=== PATIENT | female | born 1970 | race Caucasian/White ===

== ENCOUNTER 2016-12-12 17:42 | Inpatient (IN) | payer OTHER ==
[~2016-12-12] VITALS: Ht 160 cm; Wt 132.4 kg
[~2016-12-12 17:42] MED LIST: AMOXICILLIN875 M1 PO; AUGMENTIN 875-1 EACH PO; CELEBREX100 MG PO; CLARITIN10 MG PO; CLEOCIN HCL300 M1 PO; FUROSEMIDE40 MG PO; KLOR-CON 1010 ME1 PO; PREDNISONE 20MG20 MG PO; PROAIR HFA0.09 MG/Ac; SYMBICORT 80-10.2 GM INH; TRAMADOL HCL50 M1 PO; ULTRAM50 M1 PO; ZITHROMAX Z-PA250 M1 PO
--- NOTE | 2016-12-12 17:47 | NUR ---
PER PT SINUSITIS SINCE Sunday CONCENTRATED TO RT EYE, WENT TO WALK IN ON AUGMENTIN AND POLY TRIM ON 12/06 TODAY FEVER AND ITS PAINFUL TO MOVE RT EYE.
--- NOTE | 2016-12-12 18:06 | NUR ---
APPRECIATE TRIAGE NOTE. PT AMBULATORY TO ROOM 18. INFORMED WAITING PERFORMED, OFFERS NO COMPLAINTS AT THIS TIME.
[2016-12-12] MEDS ORDERED: PROAIR HFA8.5 GM INH (18:07)
[2016-12-12] MEDS ORDERED: FUROSEMIDE40 M1 PO (18:07)
[2016-12-12] MEDS ORDERED: POLYMYXIN B-TMP10 ML OD (18:08)
[2016-12-12] MEDS ORDERED: AMOX-CLAV 875-1 EACH PO (18:08)
[2016-12-12] MEDS ORDERED: IBUPROFEN200 M3 PO (18:09)
[2016-12-12] MEDS ORDERED: SYMBICORT 80-10.2 GM (18:12)
[2016-12-12] MEDS ORDERED: SUDAFED PE PRE1 EACH PO (18:14)
--- NOTE | 2016-12-12 18:41 | ED EYE COMPLAINT ---
History of Present Illness General Chief Complaint: Eye Problems Stated Complaint: WAS AT URGENT CARE FOR HER RT EYE Source: patient Exam Limitations: no limitations Allergies Coded Allergies: Sulfa (Sulfonamide Antibiotics) (Severe, FAMILY REACTION PER PT 01/13/16) montelukast (BAD DREAMS 12/12/16) Reconcile Medications Acyclovir (Zovirax) 5 % OINT...G. 1 CHRISTIAN TOP Q4 PRN HSV-1 Albuterol Sulfate (Proair Hfa) 90 MCG HFA.AER.AD 2 PUF INH Q4-6 PRN PRN ASTHMA (Reported) Amoxicillin/Potassium Clav (Augmentin 875-125 Tablet) 875 MG-125 MG TABLET 1 TAB PO BID preseptal cellulitis Furosemide 40 MG TABLET 1 TAB PO DAILY DIURETIC (Reported) Ibuprofen 200 MG CAPSULE 4 CAP PO PRN PAIN/FEVER (Reported) Phenylephrine HCl/Acetaminophn (Sudafed PE Pressure+Pain Cplt) 5 MG-325 MG TABLET 2 TAB PO PRN SINUSES (Reported) Polymyxin B Sulf/Trimethoprim (Polymyxin B-Tmp Eye Drops) 10,000 UNIT-1 MG/ML DROPS 1 GTT OD 4 TIMES/DAY RIGHT EYE (Reported) Potassium Chloride (Klor-Con 10) 10 MEQ TABLET.ER 1 TAB PO DAILY SUPPLEMENT ( Reported) Triage Note: PER PT SINUSITIS SINCE Sunday CONCENTRATED TO RT EYE, WENT TO WALK IN ON AUGMENTIN AND POLY TRIM ON 12/06 TODAY FEVER AND ITS PAINFUL TO MOVE RT EYE. Triage Nurses Notes Reviewed? yes HPI: This patient is a 46-year-old female with a past medical history including seasonal allergies who presented to the emergency department today for evaluation of right eye redness and swelling. The patient reported that last Sunday she started having a sinus headache and low-grade fevers. She reported that she was at that time having chills. She went to an urgent care center with a crit her on polymyxin drops and Augmentin. She was told that she likely had periorbital cellulitis. The patient has continued to have low-grade fevers and chills since that time. She has been taking the medication as directed. The patient noticed today that she has some pain when she looks up with her right eyes. She reported that a couple days ago her eye was red and swollen shot. She denied any sensation of foreign body in her eye. She denied any blurry vision, chest pain, difficulty breathing, abdominal pain, nausea, or vomiting. (ANUM JO PA-C) Vital Signs & Intake/Output Vital Signs & Intake/Output Vital Signs Date Time Temp Pulse Resp B/P B/P Pulse O2 O2 Flow FiO2 Mean Ox Delivery Rate 12/13 1427 98.2 93 20 130/74 98 12/13 0635 98.3 68 20 134/60 94 Room Air 12/13 0052 Room Air 12/13 0045 97.8 77 20 140/60 95 Room Air 12/13 0024 97.0 72 20 164/70 93 Room Air 12/12 2009 97.5 78 18 171/85 98 12/12 1748 98.8 88 20 96 Room Air ED Intake and Output 12/13 0000 12/12 1200 Intake Total 1000 Output Total Balance 1000 Intake, IV 1000 Past History Travel History Traveled to [place] past 21 day No Medical History Any Pertinent Medical History? see below for history Neurological: NONE EENT: NONE Cardiovascular: WATER RETENTION Respiratory: asthma Gastrointestinal: NONE Hepatic: NONE Renal: NONE Musculoskeletal: NONE Psychiatric: NONE Endocrine: NONE Blood Disorders: HYPOKALEMIA Surgical History Surgical History: non-contributory Psychosocial History What is your primary language Setswana Tobacco Use: Current Daily Use Daily Tobacco Use Amount/Type: => 5 Cigarettes daily Family History Hx Contributory? No (ANUM JO PA-C) Review of Systems Review of Systems Constitutional: Reports: see HPI. Eyes: Reports: see HPI. Ear: Reports: no symptoms. Nose: Reports: no symptoms. Mouth: Reports: no symptoms. Throat: Reports: no symptoms. Respiratory: Reports: no symptoms. Cardiovascular: Reports: no symptoms. GI: Reports: no symptoms. Genitourinary: Reports: no symptoms. Musculoskeletal: Reports: no symptoms. Skin: Reports: see HPI. Neurological/Psychological: Reports: see HPI. All Other Systems: Reviewed and Negative (ANUM JO PA-C) Physical Exam General Appearance: well developed/nourished, no apparent distress, alert, awake General Inspection: normal inspection General Inspection: PROPTOSIS, PERIORBITAL ERYTHEMA AND EDEMA, NO CONJUNCTIVAL INJECTION, NO PURULENT DRAINAGE FROM THE EYE, eomi BILATERALLY WITH MILD PAIN WITH UPWARD GAZE ON THE RIGHT, perrla, NO EVIDENCE OF FOREIGN BODY IN THE EYE AND WITH LID LIFT Physical Exam Comments: Well-developed well-nourished person in no acute distress HEENT: Head normocephalic/atraumatic, moist mucous membranes Tenderness to palpation over the sinuses bilaterally Neck: Supple, no lymphadenopathy Back: Normal gait Cardiovascular: Regular rate and rhythm with no murmurs Respiratory: No respiratory distress. Speaking in full sentences Extremity: Normal equal pulses Neuro: Alert oriented x3, cranial nerves II through XII grossly intact. Skin: No appreciable rash on exposed skin, skin is warm and dry. Psych: Mood and affect is normal (DEYSI BARRETO,ANUM) Progress Differential Diagnosis: corneal abrasion, corneal foreign body, conjunctivitis, detached retina, glaucoma, globe rupture, retinal art./v. occlusion, PERIORBITAL CELLULITIS, ORBITAL CELLULITIS Diagnostic Imaging: Viewed by Me: CT Scan. Discussed w/RAD: CT Scan. Radiology Impression: PATIENT: ROSEMARY STOUT PRESENT AGE: 46 PATIENT ACCOUNT NO: [id number] : 68 LOCATION: [facility] ORDERING PHYSICIAN: ANUM JO PA-C SERVICE DATE: 12/12/16 EXAM TYPE: CAT - CT ORBITS W IV CONTRAST EXAMINATION: CT ORBIT WITH CONTRAST CLINICAL INFORMATION : Proptosis. Erythema. Edema right orbit COMPARISON: None TECHNIQUE: Axial images obtained through the orbits with IV contrast. Coronal and sagittal reformatted images performed at the CT scanner. 95 mL Optiray 320 given. DLP: 194.95 mGy-cm FINDINGS: There is soft tissue swelling the preseptal soft tissue around the right orbit. The orbital globes and retrobulbar structures are normal. There is no acute osseous of noted. No fracture of orbits. There is sinus disease. Mucosal thickening of the wall the right mastoid sinus with air- fluid level in the right maxillary sinus. The ostiomeatal right maxillary sinus is occluded. Mucosal thickening extends into the right ethmoid sinus and extends into the base of the right frontal sinus. There is also mucosal thickening at the inferior left frontal sinus with partial occlusion of the ostia the left frontal sinus The mastoid air cells and middle ear cavities are normally aerated. IMPRESSION: 1. Preseptal soft tissue tissue swelling over the right orbit. 2. No orbital fracture. 3. Sinus disease. DICTATED BY: MELY SORTO MD DATE/TIME DICTATED:12/12/162010 DOUBLE END PRODUCTION GRINDER:JOSEPH DATE/TIME TRANSCRIBED:12/12/162010 CONFIDENTIAL, DO NOT COPY WITHOUT APPROPRIATE AUTHORIZATION. <Electronically signed in Other Vendor System> SIGNED BY: MELY SORTO MD 12/12/162018 Comments: 12/12/2016 9:34:55 PM: Hospitalist would like me to speak with on-call radial arm saw operator. I spoke to the on-call radial arm saw operator, Dr. Bean, who reported that there is not much from January this case. She should get IV antibiotics and if anything should change, he should be contacted. (DEYSI ABRRETO,ANUM) Plan of Care: Orders Procedure Date/time Status Regular Diet 12/13 B Active Change service to 12/13 742 Active CBC WITHOUT DIFFERENTIAL 12/13 599 Complete BASIC ELECTROLYTES PLUS BUN&CR 12/13 599 Complete Pathway - chart 12/13 224 Active House Staff 12/13 224 Active Vital Signs 12/13 38 Active Teach/Educate 12/13 38 Active Pain Treatment and Response 12/13 38 Active Nutritional Intake, Monitor 12/13 38 Active Isolation 12/13 38 Active Intake & Output 12/13 38 Active Patient Care Conference 12/13 38 Active Activity/Ambulation 12/13 38 Active Anticipated Discharge 12/13 UNK Active VTE Mechanical Prophylaxis 12/13 UNK Active OXYGEN SETUP (GEN) 12/13 2235 Active Saline Lock 12/13 2235 Active Misc Message 12/13 2235 Active ED Holding Orders 12/13 2235 Active Vital Signs 12/13 2235 Active Activity/Ambulation 12/12 223 Active Code Status 12/12 223 Active Patient Data 12/123 Active Admit to inpatient 12/12 2136 Active BLOOD CULTURE 12/12 182 Active URINE 12/12 182 Complete LACTIC ACID 12/12 182 Complete COMPREHENSIVE METABOLIC PANEL 12/12 182 Complete CBC WITHOUT DIFFERENTIAL 12/12 182 Complete Intake & Output 12/12 1807 Active Current Medications Sig/Bruno Start time Last Medication Dose Stop Time Status Admin Acyclovir 1 CHRISTIAN Q4 12/13 1800 AC (Zovirax Oint) Heparin Sodium 5,000 UNIT Q8 12/13 0600 AC 12/13 (Porcine) 1451 Potassium Chloride 10 MEQ DAILY PRN 12/13 0515 AC (K-Dur) Furosemide 40 MG DAILY PRN 12/13 0500 AC (Lasix) Acetaminophen 650 MG Q6P PRN 12/13 0230 AC 12/13 (Tylenol) 0458 Acetaminophen 1,000 MG Q6P PRN 12/13 0230 AC (Ofirmev) Albuterol Sulfate 2 PUF Q4-6 PRN PRN 12/13 0230 AC (Ventolin) Oxycodone/ 1 TAB Q6P PRN 12/13 0230 AC Acetaminophen (Percocet) Ampicillin Sodium/ 3,000 MG Q6 12/12 2359 AC 12/13 Sulbactam Sodium 1154 (Unasyn) Sodium Chloride 100 ML (Normal Saline 0.9%) Vancomycin HCl 0 .STK-MED ONE 12/12 222 CAN Vancomycin HCl 1,000 MG ONCE ONE 12/12 214 CAN Sodium Chloride 250 ML 12/12 2244 (Normal Saline 0.9%) Laboratory Tests 12/13/16 0632: Anion Gap 8, Estimated GFR > 60, BUN/Creatinine Ratio 18.8, CBC w Diff NO MAN DIFF REQ, RBC 4.07 L, MCV 93.7, MCH 31.3 H, RDW 13.0, MPV 8.1, Gran % 56.7, Lymphocytes % 28.4, Monocytes % 8.0, Eosinophils % 6.3 H, Basophils % 0.6, Absolute Granulocytes 4.4, Absolute Lymphocytes 2.2, Absolute Monocytes 0.6, Absolute Eosinophils 0.5, Absolute Basophils 0, PUBS MCHC 33.4 12/12/162: Lactic Acid Cancelled 12/12/16 1850: Anion Gap 15, Estimated GFR > 60, BUN/Creatinine Ratio 20.0, Glucose 106 H, Lactic Acid 1.1, Calcium 9.2, Total Bilirubin 0.4, AST 31, ALT 69 H, Alkaline Phosphatase 125, Total Protein 7.6, Albumin 4.3, Globulin 3.3, Albumin/Globulin Ratio 1.3, CBC w Diff NO MAN DIFF REQ, RBC 4.59, MCV 93.0, MCH 31.3 H, RDW 12.8 , MPV 7.6, Gran % 65.0, Lymphocytes % 24.1, Monocytes % 3.7, Eosinophils % 6.5 H, Basophils % 0.7, Absolute Granulocytes 5.7, Absolute Lymphocytes 2.1, Absolute Monocytes 0.3, Absolute Eosinophils 0.6, Absolute Basophils 0.1, PUBS MCHC 33.6, Urine Test NEGATIVE Microbiology 12/13 1931 BLOOD: Blood Culture - RES 12/12 1849 BLOOD: Blood Culture - RES Departure Departure Disposition: STILL A PATIENT Condition: Stable Clinical Impression Primary Impression: Periorbital cellulitis of right eye Referrals: TEE GAITAN MD (PCP/Family) Departure Forms: Customer Survey General Discharge Information Prescriptions: Current Visit Scripts Acyclovir (Zovirax) 1 CHRISTIAN TOP Q4 PRN HSV-1 #1 Amoxicillin/Potassium Clav (Augmentin 875-125 Tablet) 1 TAB PO BID 9 Days Admission Note Spoke With: DELLA MATOS MD Documentation of Exam: Documentation of any treatments & extenuating circumstances including Concerns Regarding Discharge (functional status, medication knowledge or non-compliance, living conditions, etc.) that warrant an admission rather than observation: [ This patient is a 46-year-old female who presented to the emergency department today for evaluation of redness and swelling around her right eye. Proptosis noted. CT scan of the orbits revealed periorbital cellulitis. Because of this patient was on a on a course of outpatient antibiotics for this infection, she has felt outpatient therapy and will need admission to Gen. medicine for IV antibiotics. She will need her blood cultures followed up, her labs trended, IV fluids, and close monitoring. Premature discharge could prove medically harmful.] (DEYSI BARRETO,ANUM) PA/LEGAL PROJECT MANAGER Co-Sign Statement Statement: ED Attending supervision documentation- [] I saw and evaluated the patient. I have also reviewed all the pertinent lab results and diagnostic results. I agree with the findings and the plan of care as documented in the PA's/LEGAL PROJECT MANAGER's documentation. [X] I have reviewed the ED Record and agree with the PA's/LEGAL PROJECT MANAGER's documentation. [] Additions or exceptions (if any) to the PAs/LEGAL PROJECT MANAGER's note and plan are summarized below: [] (RADHA SWANN,HEIDI Cueva)
--- NOTE | 2016-12-12 18:58 | NUR ---
BLOOD DRAWN AND SENT TO LAB BY THIS [facility]. 1ST SET OF BLOOD CULTURES, SST, LAV, AND AZEVEDO. URINE TRIO COLLECTED AND SENT TO LAB BY THIS [facility].
[2016-12-12 19:03] LABS: ABSOLUTE BASOPHIL COUNT 0.1 /CUMM (0.0-0.2); ABSOLUTE EOSINOPHIL COUNT 0.6 /CUMM (0.0-0.7); ABSOLUTE GRANULOCYTE CT 5.7 /CUMM (1.4-6.5); ABSOLUTE LYMPH COUNT 2.1 /CUMM (1.2-3.4); ABSOLUTE MONOCYTE COUNT 0.3 /CUMM (0.10-0.60); BASOPHIL % 0.7 % (0.0-2.0); EOSINOPHIL % 6.5 % (0-5); HEMATOCRIT 42.7 % (37-47); MEAN CORPUSCULAR HGB 31.3 PG (27.0-31.0); MEAN CORPUSCULAR HGB CONC 33.6 G/DL (33.0-37.0); MEAN PLATELET VOLUME 7.6 FL (7.4-10.4); PLATELET COUNT 270 /CUMM (130-400); RBC DISTRIBUTION WIDTH 12.8 % (11.5-14.5); RED BLOOD CELL CT 4.59 /CUMM (4.20-5.40); WHITE BLOOD CELL COUNT 8.8 /CUMM (4.8-10.8)
--- NOTE | 2016-12-12 19:47 | NUR ---
LINE EST #20 TO RAC. PT MEDICATED PER EMAR. AMBULATORY TO CAT SCAN AT THIS TIME.
--- NOTE | 2016-12-12 20:19 | CT SCAN REPORT ---
EXAMINATION: CT ORBIT WITH CONTRAST CLINICAL INFORMATION: Proptosis. Erythema. Edema right orbit COMPARISON: None TECHNIQUE: Axial images obtained through the orbits with IV contrast. Coronal and sagittal reformatted images performed at the CT scanner. 95 mL Optiray 320 given. DLP: 194.95 mGy-cm FINDINGS: There is soft tissue swelling the preseptal soft tissue around the right orbit. The orbital globes and retrobulbar structures are normal. There is no acute osseous of noted. No fracture of orbits. There is sinus disease. Mucosal thickening of the wall the right mastoid sinus with air-fluid level in the right maxillary sinus. The ostiomeatal right maxillary sinus is occluded. Mucosal thickening extends into the right ethmoid sinus and extends into the base of the right frontal sinus. There is also mucosal thickening at the inferior left frontal sinus with partial occlusion of the ostia the left frontal sinus The mastoid air cells and middle ear cavities are normally aerated. IMPRESSION: 1. Preseptal soft tissue tissue swelling over the right orbit. 2. No orbital fracture. 3. Sinus disease.
--- NOTE | 2016-12-12 22:01 | History & Physical ---
KIMBRELEY MAHAJAN 12/12/16 2200: General Information and HPI MD Statement: I have seen and personally examined ROSEMARY STOUT and documented this H&P. The patient is a 46 year old F who presented with a patient stated chief complaint of right eye pain associated with redness and swelling for 2 weeks Source of Information: patient Exam Limitations: no limitations History of Present Illness: This is a 46-year-old female with past medical history significant for seasonal allergies, asthma, water retention in legs on lasix as required presented to [facility] emergency department with the chief complaint of right eye pain associated with redness and swelling for a couple of weeks. Patient has history of seasonal allergies for which she takes Claritin. According to the patient since Sunday she was having sinusitis which progressed to low-grade fever, chills associated with sinus headaches. She went to her primary care doctor on 12/06/2016 and she was started on Augmentin and polymyxin eyedrops for presumed preorbital cellulitis. Patient completed 7 days of antibiotic course, she feels swelling and redness has came down since taking antibiotics. However she was worried about her vision and chances of progression of pre-orbital cellulitis to orbital cellulitis.(She was reading in the Internet) Patient reported redness, swelling which has been subsided associated with mild pain. She feels pulling sensation of the right eye muscles. Denies any pain with eye movements. Denies proptosis, foreign body sensation. Denies any changes in her vision. Denies any eye discharge. She denied any trauma to her eye. Denies any scratchy or itchy sensation. She denies any ear infection, ear pain, ear drainage. Denies any sore throat. Patient denies any headache, no weakness, sensory changes, numbness or tingling sensation, chest pain, racing of heart, difficulty breathing, cough, upper respiratory tract infections, nausea, vomiting, abdominal pain, change in bladder or bowel habits, peripheral edema. Patient reports history of smoking almost 2 packs per day, however she has been cutting down. Right now she smokes less than half pack per day. Socially alcoholic. Denies any other drug abuse. She lives with her son and independent of all activities. Allergies/Medications Allergies: Coded Allergies: Sulfa (Sulfonamide Antibiotics) (Severe, FAMILY REACTION PER PT 01/13/16) montelukast (BAD DREAMS 12/12/16) Home Med list Albuterol Sulfate (Proair Hfa) 90 MCG HFA.AER.AD 2 PUF INH Q4-6 PRN PRN ASTHMA (Reported) Furosemide 40 MG TABLET 1 TAB PO DAILY DIURETIC (Reported) Ibuprofen 200 MG CAPSULE 4 CAP PO PRN PAIN/FEVER (Reported) Phenylephrine HCl/Acetaminophn (Sudafed PE Pressure+Pain Cplt) 5 MG-325 MG TABLET 2 TAB PO PRN SINUSES (Reported) Polymyxin B Sulf/Trimethoprim (Polymyxin B-Tmp Eye Drops) 10,000 UNIT-1 MG/ML DROPS 1 GTT OD 4 TIMES/DAY RIGHT EYE (Reported) Potassium Chloride (Klor-Con 10) 10 MEQ TABLET.ER 1 TAB PO DAILY SUPPLEMENT ( Reported) Compliance With Home Meds: GOOD Past History Travel History Traveled to [place] past 21 day No Medical History Neurological: NONE EENT: NONE Cardiovascular: WATER RETENTION Respiratory: asthma Gastrointestinal: NONE Hepatic: NONE Renal: NONE Musculoskeletal: NONE Psychiatric: NONE Endocrine: NONE Blood Disorders: HYPOKALEMIA Surgical History Surgical History: non-contributory Past Family/Social History Psychosocial History Smoking Status: Current Everyday Smoker ETOH Use: occasional use Illicit Drug Use: denies illicit drug use Review of Systems Review of Systems Constitutional: Reports: chills, fever. Denies: diaphoresis, malaise, weakness, unexplained weight loss. EENTM: Reports: eye pain. Denies: blurred vision, double vision, visual changes, eye drainage, eye tearing, ear discharge, ear pain, ear redness, hearing changes, nasal congestion, epistaxis, nasal pain, throat pain, throat swelling, mouth pain, tooth pain. Cardiovascular: Denies: chest pain, edema, orthopena, palpitations, peripheral edema, syncope. Respiratory: Denies: cough, hemoptysis, orthopnea, short of breath, sputum production, stridor, wheezing. GI: Denies: abdominal pain, bloating, constipation, diarrhea, distention, melena, nausea, bloody stool, changes in stool. Genitourinary: Denies: discharge, dysuria, frequency, pain, urgency. Musculoskeletal: Denies: back pain, gout, joint pain. Skin: Denies: see HPI. Neurological/Psychological: Denies: anxiety, ataxia, depressed, dementia, headache, numbness, tingling, tremors, weakness. Exam & Diagnostic Data Last 24 Hrs of Vital Signs/I&O Vital Signs Date Time Temp Pulse Resp B/P B/P Pulse O2 O2 Flow FiO2 Mean Ox Delivery Rate 12/13 0052 Room Air 12/13 0045 97.8 77 20 140/60 95 Room Air 12/13 0024 97.0 72 20 164/70 93 Room Air 12/12 2009 97.5 78 18 171/85 98 12/12 1748 98.8 88 20 96 Room Air Intake & Output 12/13 0800 12/13 0000 12/12 1600 Intake Total 1000 Output Total Balance 1000 Intake, IV 1000 Patient 132.449 kg Weight Physical Exam General Appearance Alert, Oriented X3, Cooperative, No Acute Distress Skin No Rashes, No Breakdown HEENT Atraumatic, PERRLA, EOMI, Mucous Membr. moist/pink Neck Supple, No JVD Lymphatic Axillary nl, Cervical nl Cardiovascular Regular Rate, Normal S1, Normal S2, No Murmurs Lungs Normal Air Movement Abdomen Normal Bowel Sounds, Soft, No Tenderness Neurological Normal Speech, Strength at 5/5 X4 Ext, Normal Tone, Sensation Intact, Cranial Nerves 3-12 NL, Reflexes 2+ Extremities No Clubbing, No Cyanosis, No Edema Vascular Normal Pulses, Pulses Symmetrical Last 24 Hrs of Labs/Stephen: Laboratory Tests 12/12/162121: Lactic Acid Cancelled 12/12/161849: Anion Gap 15, Estimated GFR > 60, BUN/Creatinine Ratio 20.0, Glucose 106 H, Lactic Acid 1.1, Calcium 9.2, Total Bilirubin 0.4, AST 31, ALT 69 H, Alkaline Phosphatase 125, Total Protein 7.6, Albumin 4.3, Globulin 3.3, Albumin/Globulin Ratio 1.3, CBC w Diff NO MAN DIFF REQ, RBC 4.59, MCV 93.0, MCH 31.3 H, RDW 12.8 , MPV 7.6, Gran % 65.0, Lymphocytes % 24.1, Monocytes % 3.7, Eosinophils % 6.5 H, Basophils % 0.7, Absolute Granulocytes 5.7, Absolute Lymphocytes 2.1, Absolute Monocytes 0.3, Absolute Eosinophils 0.6, Absolute Basophils 0.1, PUBS MCHC 33.6, Urine Test NEGATIVE Microbiology 12/13 1931 BLOOD: Blood Culture - RECD 12/12 1849 BLOOD: Blood Culture - RECD Assessment/Plan Assessment: This is a 46-year-old female with past medical history significant for seasonal allergies, asthma, water retention in legs on lasix as required presented to [facility] emergency department with the chief complaint of right eye pain associated with redness and swelling for a couple of weeks. According to the patient since Sunday she was having sinusitis which progressed to low-grade fever, chills associated with sinus headaches. She went to her primary care doctor on 12/06/2016 and she was started on Augmentin and polymyxin eyedrops for presumed preorbital cellulitis. Vitals on admission-afebrile, heart rate 88, respiratory rate 20, blood pressure 171/85, saturating at 96 room air. Pertinent labs on admission CBC and BMP were normal. Lactic acid normal. LFTs normal. She received 1bag of sodium chloride and vancomycin in the emergency room. CAT scan showed 1. Preseptal soft tissue tissue swelling over the right orbit. 2. No orbital fracture. 3. Sinus disease. Problem list 1. preseptal cellulitis of righteye 2. History of seasonal allergies 3. History of asthma 4. leg edema Preseptal cellulitis of right eye Patient completed 7 days of antibiotic course for preseptal cellulitis, she feels swelling and redness has came down since taking antibiotics. However she was worried about her vision and chances of progression of pre-orbital cellulitis to orbital cellulitis.(She was reading in the Internet) * Denies any pain with eye movements. Denies proptosis, foreign body sensation. Denies any changes in her vision. Denies any eye discharge. * She denied any trauma to her eye. * Denies any scratchy or itchy sensation. * She denies any ear infection, ear pain, ear drainage. * Denies any sore throat. * most possibly sinusitis proceeding to eye infection. * The most common sources might be staph aureus, Streptococcus, anaerobes * We'll admit her to general med for further management of preseptal cellulitis * Monitor vitals every shift * Start her on IV antibiotics-Unasyn * Follow-up blood cultures * Closely monitor for worsening eye symptoms like loss of vision, ophthalmoplegia, proptosis vision changes, any discharge from eye seasonal allergies Claritin as required Asthma Uses proair leg edema Takes Lasix 40 mg as required She is full code Pain pathway Tylenol and oxycodone Regular diet DVT prophylaxis As Ranked By This Provider Problem List: 1. Periorbital cellulitis of right eye Core Measures/Miscellaneous Acute Coronary Syndrome ACS Diagnosis: No Cerebrovascular Accident CVA/TIA Diagnosis: No Congestive Heart Failure CHF Diagnosis: No Venous Thromboembolism VTE Risk Factors: Age > 40 No [facility] VTE prophylaxis d/t: No contraindications No VTE Pharm Prophylaxis d/t: No contraindications VTE Diagnosis: No VTE Type: NONE VTE Confirmed by (Test): NONE Severe Sepsis Severe Sepsis Present: No Septic Shock Septic Shock Present: No Miscellaneous Documentation Attending Case Discussed With: DELLA MATOS MD Primary Care Physician: TEE GAITAN MD Patient sees these Specialists none Level of Patient Care: General Medicine ROBERTO FISH 12/13/16 0308: Resident Review Statement Other Findings: Ms. Stout, is a 46 year-old female with significant past medical history of asthma [only on pro-air scratch that albuterol as a rescue inhaler], and seasonal allergies who presents to the hospital emergency department with complaints of left periorbital swelling. She states that on Sunday, approximately November 26 she had a significant attack of allergic rhinitis secondary to pollen exposure, and feels she subsequently developed sinusitis after that. This wound for approximately 1 week, during which she developed frontal sinus fullness and pain on the right side along with the development of fevers. This progressed in spite of her taking Sudafed and Claritin, and she developed right eye swelling with erythema. She visited her doctor and was told she had preseptal cellulitis, and was subsequently placed on Augmentin and polymyxin eyedrops. She began improving and her swelling significantly decreased along with her erythema, however she presented to the hospital after reading online that orbital cellulitis can lead to vision loss. Associated symptoms in addition to her right orbital erythema and edema include fever and chills with sinus congestion. She denied any diplopia, pain with extraocular movement or discharge. She denied any vision loss. The remaining review of systems and physical exam as dictated above. Of note, she does have 2 cold sores on her upper lip. Ophthalmoscopic exam of her right eye was benign. Visual acuity intact. There is mild to moderate periorbital swelling and erythema [improved when compared with pictures on the patient's phone], no discharge expressed with palpation. No tenderness to palpation. Labs and CT scan as dictated above. Problem list assessment and plan Preseptal cellulitis [aka periorbital cellulitis] * This is a very nice and typical case of preseptal cellulitis, which was preceded by an upper respiratory infection/sinusitis. There is no associated trauma. * Most common causes of preseptal cellulitis include staph aureus, staph epidermidis and Streptococcus as well as anaerobes. * She did respond to by mouth Augmentin and polymyxin, she started on December 06 and therefore has received 6 days of antibiotics so far. * Given her response to the current regimen, we will treat with IV Unasyn 3 g every 6 hours in the outpatient setting. * Monitor vitals including fever and repeat CBC in the morning. * Tylenol for mild pain and fevers. Asthma/LE swelling * The patient only uses albuterol as a rescue inhaler, and does not use Symbicort anymore. * She has cut back her smoking significantly and was encouraged to continue. * Maintain O2 saturations above 92%. * Pt only uses furosemide PRN for leg swelling. No swelling and we will hold for now. 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 Then she started to develop program low-grade fever, chills. 7 days back she went to urgent care where she was told that she has periorbital cellulitis and was given Augmentin. The redness and swelling was getting better. Patient has comparative pictures on her cell phone. But then she reviewed online that periorbital cellulitis can be confused with our bilateral cellulitis and may lose vision. And she was noticing some pressure in eyelids looking upwards so she came to ER. Vision is intact, no ear discharge, no sore throat or cough. She noticed some glands in her neck. Vitals: Afebrile, pulse, RRR, blood pressure, O2 saturation acceptable range. On examination: A O 3, cooperative, morbidly obese, right eye inflammation, extraocular movements intact , coronary intact, pupils equal round reactive to light, mild congestion conjunctival lateral aspect, no pain while eye-movement, no proptosis, mild tenderness on frontal sinus, no acute distress, neck supple, JVD normal, cervical lymphadenopathy present, herpes sores on lips, mucosa moist , no focal neurological deficit, no dependent edema, no obvious skin rashes or inflammation CVS: S1-S2, RRR. RS: Clear to auscultate bilaterally. Abdomen: Soft , NT, ND, bowel sounds present. Labs: CBC, BMP, LFT unremarkable. CT ORBIT: 1. Preseptal soft tissue tissue swelling over the right orbit. 2. No orbital fracture. 3. Sinus disease. A and P Periorbital cellulitis: Full range of eye movement present, no pain on extraocular movements. Mild redness on lateral aspect of conjunctiva but no proptosis, vision intact. Continue Unasyn IV, pain control. DVT prophylaxis with heparin.
--- NOTE | 2016-12-12 22:12 | NUR ---
HOUSE STAFF TO BEDSIDE FOR EVALUATION.
--- NOTE | 2016-12-12 22:48 | NUR ---
DR. Maier TO BEDSIDE FOR EVAL AT THIS TIME.
--- NOTE | 2016-12-12 23:44 | NUR ---
ASSUMED PRIMARY CARE OF PT. UNASYN INFUSING ORDERED. PT OFFERS NO COMPLAINTS AT THIS TIME DOES NOT WISH TO CHANGE INTO GOWN AWAKE/ALERT WITH EASY WOB.
--- NOTE | 2016-12-13 00:13 | NUR ---
REPORT TO DORON DSOUZA.
[2016-12-13 00:45] VITALS: BP 140/60
--- NOTE | 2016-12-13 03:51 | Admission Certification ---
Admission Certification Certification Statement - As attending physician, I certify that at the time of - admission, based on clinical presentation, severity of - symptoms, need for further diagnostic testing and - therapeutic interventions, and risk of adverse outcomes - without in-hospital treatment, in my clinical assessment, - this patient requires an acute hospital stay for a minimum - of two nights or longer. I have also considered psychsocial - factors such as support system, advanced age, financial - issues, cognitive issues, and failed out-patient treatments, - past re-admission history, safety of patient, and lack of - compliance as applicable. Specific rationale supporting this admission is: Periorbital cellulitis
[2016-12-13 06:35] VITALS: BP 134/60
[2016-12-13 07:52] LABS: ABSOLUTE EOSINOPHIL COUNT 0.5 /CUMM (0.0-0.7); ABSOLUTE GRANULOCYTE CT 4.4 /CUMM (1.4-6.5); ABSOLUTE MONOCYTE COUNT 0.6 /CUMM (0.10-0.60); MEAN PLATELET VOLUME 8.1 FL (7.4-10.4)
[2016-12-13 08:26] LABS: ABSOLUTE BASOPHIL COUNT 0 /CUMM (0.0-0.2); ABSOLUTE LYMPH COUNT 2.2 /CUMM (1.2-3.4); BASOPHIL % 0.6 % (0.0-2.0); EOSINOPHIL % 6.3 % (0-5); GRANULOCYTE % 56.7 % (42.2-75.2); HEMATOCRIT 38.2 % (37-47); MEAN CORPUSCULAR HGB 31.3 PG (27.0-31.0); MEAN CORPUSCULAR HGB CONC 33.4 G/DL (33.0-37.0); MEAN CORPUSCULAR VOLUME 93.7 FL (81.0-99.0); PLATELET COUNT 231 /CUMM (130-400); RED BLOOD CELL CT 4.07 /CUMM (4.20-5.40); WHITE BLOOD CELL COUNT 7.7 /CUMM (4.8-10.8)
--- NOTE | 2016-12-13 11:27 | PN- Housestaff ---
LARRY JARRETT 12/13/16 1126: Subjective Follow-up For: preseptal cellulitis Subjective: Seen and examined patient. States her right eye swelling has improved. Continues to have discomfort on medial abduction of right eye. Denies pain on eye movement , headache, discharge or vision changes. Endorses two lesions above her lip that are painful. Review of Systems Constitutional: Denies: chills, diaphoresis, fever, malaise, weakness, unexplained weight loss. Cardiovascular: Denies: chest pain, edema, orthopena, palpitations, peripheral edema, syncope. Respiratory: Denies: cough, hemoptysis, orthopnea, short of breath, sputum production, stridor, wheezing. Gastrointestinal: Denies: abdominal pain, bloating, constipation, diarrhea, distention, bowel incontinence, melena, nausea, bloody stool, changes in stool, vomiting, steatorrhea. Objective Last 24 Hrs of Vital Signs/I&O Vital Signs Date Time Temp Pulse Resp B/P B/P Pulse O2 O2 Flow FiO2 Mean Ox Delivery Rate 12/13 1427 98.2 93 20 130/74 98 / 0635 98.3 68 20 134/60 94 Room Air 12/13 0052 Room Air 12/13 0045 97.8 77 20 140/60 95 Room Air / 0024 97.0 72 20 164/70 93 Room Air 12/12 2010 97.5 78 18 171/85 98 / 1748 98.8 88 20 96 Room Air Intake & Output 12/13 1600 /03 0800 12/13 0000 Intake Total 400 1000 Output Total Balance 400 1000 Intake, IV 1000 Intake, Oral 400 Patient 292 lb Weight Physical Exam General Appearance: Alert, Oriented X3, Cooperative, No Acute Distress, obese HEENT: PERRLA, EOMI, mild swelling of skin over right eye Cardiovascular: Regular Rate, Normal S1, Normal S2 Lungs: Clear to Auscultation, Normal Air Movement Abdomen: Soft, No Tenderness Extremities: No Edema Current Medications: Current Medications Sig/Bruno Start time Last Medication Dose Route Stop Time Status Admin Acetaminophen 650 MG Q6P PRN 12/13 0230 AC 05/03 PO 0458 Acetaminophen 1,000 MG Q6P PRN 12/13 0230 AC IV Acyclovir 1 CHRISTIAN Q4 12/13 1800 UNVr TOP Albuterol Sulfate 2 PUF Q4-6 PRN PRN 12/13 0230 AC INH Ampicillin Sodium/ 3,000 MG Q6 12/12 2359 AC 12/13 Sulbactam Sodium IV 1154 Sodium Chloride 100 ML Ampicillin Sodium/ 0 .STK-MED ONE 12/12 2335 DC Sulbactam Sodium .ROUTE Furosemide 40 MG DAILY PRN 12/13 0500 AC PO Heparin Sodium 5,000 UNIT Q8 12/13 0600 AC 12/13 (Porcine) SC 0507 Oxycodone/ 1 TAB Q6P PRN 12/13 0230 AC Acetaminophen PO Patient Medication 1 ED .STK-MED ONE 12/13 1412 DC Teaching ED 12/13 1413 Potassium Chloride 10 MEQ DAILY PRN 12/13 0515 AC PO Sodium Chloride 1,000 ML BOLUS ONE 12/12 1830 DC 12/12 IV 12/12 1929 1947 Vancomycin HCl 0 .STK-MED ONE 12/12 2226 CAN .ROUTE Vancomycin HCl 1,000 MG ONCE ONE 12/12 2145 CAN Sodium Chloride 250 ML IV 12/12 2244 Last 24 Hrs of Lab/Stephen Results Last 24 Hrs of Labs/Mics: Laboratory Tests 12/13/16 0632: Anion Gap 8, Estimated GFR > 60, BUN/Creatinine Ratio 18.8, CBC w Diff NO MAN DIFF REQ, RBC 4.07 L, MCV 93.7, MCH 31.3 H, RDW 13.0, MPV 8.1, Gran % 56.7, Lymphocytes % 28.4, Monocytes % 8.0, Eosinophils % 6.3 H, Basophils % 0.6, Absolute Granulocytes 4.4, Absolute Lymphocytes 2.2, Absolute Monocytes 0.6, Absolute Eosinophils 0.5, Absolute Basophils 0, PUBS MCHC 33.4 12/12/162121: Lactic Acid Cancelled 12/12/16 1850: Anion Gap 15, Estimated GFR > 60, BUN/Creatinine Ratio 20.0, Glucose 106 H, Lactic Acid 1.1, Calcium 9.2, Total Bilirubin 0.4, AST 31, ALT 69 H, Alkaline Phosphatase 125, Total Protein 7.6, Albumin 4.3, Globulin 3.3, Albumin/Globulin Ratio 1.3, CBC w Diff NO MAN DIFF REQ, RBC 4.59, MCV 93.0, MCH 31.3 H, RDW 12.8 , MPV 7.6, Gran % 65.0, Lymphocytes % 24.1, Monocytes % 3.7, Eosinophils % 6.5 H, Basophils % 0.7, Absolute Granulocytes 5.7, Absolute Lymphocytes 2.1, Absolute Monocytes 0.3, Absolute Eosinophils 0.6, Absolute Basophils 0.1, PUBS MCHC 33.6, Urine Test NEGATIVE Microbiology 12/13 1931 BLOOD: Blood Culture - RES 12/12 1849 BLOOD: Blood Culture - RES Assessment/Plan Assessment: 46-year-old female with past medical history significant for seasonal allergies, asthma, water retention in legs on lasix as required presented to [facility] emergency department with the chief complaint of right eye pain associated with redness and swelling for a couple of weeks. CT scan of orbits with IV contrast. Current admission for outpatient treatment failure of preseptal cellulitis. hospital day 1 afebrile, VSS stable, Problem list assessment and plan Preseptal cellulitis: continue IV Unasyn 3 g every 6 hours will transition to PO antibiotic tommorrow * Tylenol for mild pain and fevers. 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 Periorbital cellulitis of right eye Pain Ratin Pain Location: na Pain Goal: Pain 4 or less Pain Plan: current regimen Tomorrow's Labs & Rationales: none required BRANDY SWANN,COLEMAN 12/13/16 1319: Attending MD Review Statement Attending Statement Attending MD Statement: examined this patient, discuss w/resident/PA/CITY ADMINISTRATOR, agreed w/resident/PA/CITY ADMINISTRATOR, reviewed EMR data (avail), discussed with nursing, discussed with case mgmt, amended to note Attending Assessment/Plan: Patient is a very pleasant 46-year-old female who presents with a right periorbital cellulitis. It began last week and she was started on Augmentin. She did admit to improvement on oral antibiotic therapy every events by pager she provided however she felt some discomfort when moving her eye and became concerned after reading about the infection on line. This morning she is doing even much better with near resolution of the periorbital erythema and marked improvement of the swelling. She has no discharge and has normal eye movement with no pain. She is afebrile and hemodynamically stable with no leukocytosis on her labs. She shows no other evidence of skin infection other than what appears to be herpes simplex rash on her upper lip. Recommendations: -The pathogens to be concern for streptococcal course, staph aureus particularly MRSA and possibly anaerobes. Her current improvement with the current course of antibiotic therapy especially her outpatient regimen makes the latter organisms less likely. - Continue IV metabolic therapy with Unasyn today. Transition back to Augmentin at the time of discharge to complete 10 days of therapy starting from yesterday.
[2016-12-13 14:27] VITALS: BP 130/74
[2016-12-13] MEDS ORDERED: ZOVIRAX30 GM TOP (15:27)
[2016-12-13] MEDS ORDERED: AUGMENTIN 875-1 EACH PO (15:27)
--- NOTE | 2016-12-13 15:30 | Patient Discharge Instructions ---
Discharge Instructions General Discharge Information You were seen/treated for: preseptal cellulitis Watch for these problems: worsening eye swelling pain with eye movement vision changes Special Instructions: please follow up with your primary care physician by 12/19/16. Diet Continue normal diet: Yes Acute Coronary Syndrome Inclusion Criteria At DC or during hospital stay patient has or had the following: ACS DIAGNOSIS No Discharge Core Measures Meds if any: Prescribed or Continued at Discharge Meds if any: NOT Prescribed or Continued at Discharge Congestive Heart Failure Inclusion Criteria At DC or during hospital stay patient has or had the following: CHF DIAGNOSIS No Discharge Core Measures Meds if any: Prescribed or Continued at Discharge Meds if any: NOT Prescribed or Continued at Discharge Cerebrovascular accident Inclusion Criteria At DC or during hospital stay patient has or had the following: CVA/TIA Diagnosis No Discharge Core Measures Meds if any: Prescribed or Continued at Discharge Meds if any: NOT Prescribed or Continued at Discharge Venous thromboembolism Inclusion Criteria VTE Diagnosis No VTE Type NONE VTE Confirmed by (Test) NONE Discharge Core Measures - Per Current guidelines, there needs to be overlap - treatment for the first 5 days of Warfarin therapy. - If discharged on Warfarin prior to 5 days of - overlap therapy, the patient will need to be - assessed for post discharge needs including - *Post discharge parental anticoagulation - *Warfarin and/or parental anticoagulation education - *Follow up date to check INR post discharge At least 5 days overlap therapy as Inpatient No Meds if any: Prescribed or Continued at Discharge Note: Overlap Therapy is Warfarin and Anticoagulant Meds if any: NOT Prescribed or Continued at Discharge
--- NOTE | 2016-12-13 16:28 | Discharge Summary ---
Visit Information Visit Dates Admission Date: 12/12/16 Discharge Date: 12/14/16 Hospital Course Course Attending Physician: COLEMAN NAVA M.D Primary Care Physician: Dr. Orr [facility] Course: Ms. Burch, is a 46 year-old woman with significant past medical history of asthma , seasonal allergies presented to [place] ED with complaints of left periorbital swelling. She intially had symptoms of sinusitis with purulent discharge which she tried Sudafed and Claritin, few days later she developed right eye swelling with erythema. She visited her doctor and was told she had preseptal cellulitis, and was subsequently placed on Augmentin and polymyxin eyedrops. She began improving and her swelling significantly decreased along with her erythema, She decided to come hospital after reading online that orbital cellulitis can lead to vision loss. Endorsed some fever and chills. Denied any diplopia,vision loss, pain with extraocular movement or discharge. Ophthalmoscopic exam of her right eye was benign and Visual acuity was intact. Vitals on admission-afebrile, heart rate 88, respiratory rate 20, blood pressure 171/85, saturating at 96 room air. Labs were unremarkable. She received 1L of sodium chloride and vancomycin in the emergency room. ER contacted the opthomologist who stated she would benefit from IV abx. CAT scan showed: 1. Preseptal soft tissue tissue swelling over the right orbit. 2. No orbital fracture. 3. Sinus disease. She was admitted to the General medicine floor. IV unasyn was started. She remained afebrile and hemodynamically stable. Improvement of the right eye periorbital erythema was noted. On day of discharge there was mild swelling of the upper eyelid. She was able to open the eyelids spontaneously and had normal extraocular muscle movements. For her skin leisons, topical Acyclovir was started. Discharged home with instructions to complete a total of ten-day course of antibiotic therapy with Augmentin. She has been advised to follow-up with her primary care provider as an outpatient next week prior to discontinuation of antibiotic therapy. Complications: none Allergies: Coded Allergies: Sulfa (Sulfonamide Antibiotics) (Severe, FAMILY REACTION PER PT 01/13/16) montelukast (BAD DREAMS 12/12/16) Significant Procedures: SERVICE DATE: 12/12/16 EXAM TYPE: CAT - CT ORBITS W IV CONTRAST FINDINGS: There is soft tissue swelling the preseptal soft tissue around the right orbit. The orbital globes and retrobulbar structures are normal. There is no acute osseous of noted. No fracture of orbits. There is sinus disease. Mucosal thickening of the wall the right mastoid sinus with air-fluid level in the right maxillary sinus. The ostiomeatal right maxillary sinus is occluded. Mucosal thickening extends into the right ethmoid sinus and extends into the base of the right frontal sinus. There is also mucosal thickening at the inferior left frontal sinus with partial occlusion of the ostia the left frontal sinus The mastoid air cells and middle ear cavities are normally aerated. IMPRESSION: 1. Preseptal soft tissue tissue swelling over the right orbit. 2. No orbital fracture. 3. Sinus disease. Disposition Summary Disposition Principal Diagnosis: Preseptal cellulitis Additional Diagnosis: HSV-1 Discharge Disposition: home or self care Discharge Instructions General Discharge Information Code Status: Full Code Patient's Diet: regular diet Patient's Activity: full activity Follow-Up Instructions/Appts: Follow up with your primary care physician by 12/19/16. Medications at Discharge Discharge Medications: Stop taking the following medications: Polymyxin B Sulf/Trimethoprim (Polymyxin B-Tmp Eye Drops) 10,000 UNIT-1 MG/ML DROPS Right Eye 4 TIMES A DAY Qty = 10 Continue taking these medications: Potassium Chloride (Klor-Con 10) 10 MEQ TABLET.ER 1 Tablet ORAL DAILY Qty = 60 Comments: Last Taken: 12/14/16 Time: 3:30AM Furosemide (Furosemide) 40 MG TABLET 1 Tablet ORAL DAILY Qty = 15 Comments: Last Taken: 12/14/16 Time: 3:30AM Albuterol Sulfate (Proair Hfa) 90 MCG HFA.AER.AD 2 Puff Inhale through mouth EVERY 4-6 HOURS NEEDED as needed for ASTHMA Qty = 9 Ibuprofen (Ibuprofen) 200 MG CAPSULE 4 Capsule ORAL as needed for PAIN/FEVER Phenylephrine HCl/Acetaminophn (Sudafed PE Pressure+Pain Cplt) 5 MG-325 MG TABLET 2 Tablet ORAL EVERY 4 HOURS NEEDED as needed for SINUSES Start taking the following new medications: Acyclovir (Zovirax) 5 % OINT...G. 1 Application On the skin Every 4 hours as needed for HSV-1 Qty = 1 No Refills Comments: Last Taken: 12/14/16 Time: 10AM Amoxicillin/Potassium Clav (Augmentin 875-125 Tablet) 875 MG-125 MG TABLET 1 Tablet ORAL TWICE DAILY Days = 9 No Refills Comments: IV ANTIBIOTICS GIVEN WHILE IN HOSPITAL Copies To: LINDA SWANN,NAMAN Attending MD Review Statement Documenting Attending: COLEMAN NAVA M.D Other Findings: I reviewed the discharge summary.
[2016-12-13 22:43] VITALS: BP 126/80
[2016-12-14 06:51] VITALS: BP 142/74
--- NOTE | 2016-12-14 08:26 | PN- Student ---
Subjective Subjective: Patient notes that she is feeling better today, and notes that swelling and redness around right eye has improved. Notes mild tenderness when she touches the area around her right eyebrow. She also notes that her "eye muscles have a pulling feeling" occasionally when when moving her right eye abruptly. Denies changes in vision, denies pain when moving right eye. Current Medications Sig/Bruno Start time Last Medication Dose Route Stop Time Status Admin Acetaminophen 650 MG Q6P PRN 12/13 0230 DCD 12/13 PO 0458 Acetaminophen 1,000 MG Q6P PRN / 0230 DCD IV Acyclovir 1 CHRISTIAN Q4 12/13 1800 DCD 12/14 TOP 1010 Albuterol Sulfate 2 PUF Q4-6 PRN PRN 12/13 0230 DCD INH Ampicillin Sodium/ 3,000 MG Q6 12/12 2359 DCD 12/14 Sulbactam Sodium IV 0536 Sodium Chloride 100 ML Furosemide 40 MG DAILY PRN 12/13 0500 DCD 12/14 PO 0338 Heparin Sodium 5,000 UNIT Q8 12/13 0600 DCD 12/14 (Porcine) SC 0535 Oxycodone/ 1 TAB Q6P PRN 12/13 0230 DCD Acetaminophen PO Patient Medication 1 ED .STK-MED ONE 12/13 1412 DC Teaching ED 12/13 1413 Potassium Chloride 10 MEQ DAILY PRN 12/13 0515 DCD 12/14 PO 0338 Objective Objective: Vital Signs Date Time Temp Pulse Resp B/P B/P Pulse O2 O2 Flow FiO2 Mean Ox Delivery Rate 12/14 1003 98.0 78 18 124/80 98 Room Air 12/14 0651 98.3 78 20 142/74 97 Room Air / 2243 97.9 70 20 126/80 97 Room Air / 1427 98.2 93 20 130/74 98 Intake & Output 12/14 1600 /04 0800 12/14 0000 Intake Total 780 630 Output Total Balance 780 630 Intake, IV 300 150 Intake, Oral 480 480 Physical exam: -General: alert and oriented, cooperative, in no acute distress -Head: normocephalic, atraumatic, no sinus tenderness on palpation -Eyes: vision intact, mild swelling of superior portion of right eyelid, no tenderness around right eye on palpation, no discharge, mild erythema around right eye. -Heart: regular rate and rhythm, S1, S2, no murmurs, rubs, or gallops -Lungs: clear to auscultation bilaterally, good air entry throughout, no wheezes heard -Abdomen: soft, non-tender, no masses, bowel sounds present -Extremities: 1+ lower extremity edema bilaterally Results Results: Laboratory Tests 12/13/16 0632: Anion Gap 8, Estimated GFR > 60, BUN/Creatinine Ratio 18.8, CBC w Diff NO MAN DIFF REQ, RBC 4.07 L, MCV 93.7, MCH 31.3 H, RDW 13.0, MPV 8.1, Gran % 56.7, Lymphocytes % 28.4, Monocytes % 8.0, Eosinophils % 6.3 H, Basophils % 0.6, Absolute Granulocytes 4.4, Absolute Lymphocytes 2.2, Absolute Monocytes 0.6, Absolute Eosinophils 0.5, Absolute Basophils 0, PUBS MCHC 33.4 12/12/162121: Lactic Acid Cancelled 12/12/161849: Anion Gap 15, Estimated GFR > 60, BUN/Creatinine Ratio 20.0, Glucose 106 H, Lactic Acid 1.1, Calcium 9.2, Total Bilirubin 0.4, AST 31, ALT 69 H, Alkaline Phosphatase 125, Total Protein 7.6, Albumin 4.3, Globulin 3.3, Albumin/Globulin Ratio 1.3, CBC w Diff NO MAN DIFF REQ, RBC 4.59, MCV 93.0, MCH 31.3 H, RDW 12.8 , MPV 7.6, Gran % 65.0, Lymphocytes % 24.1, Monocytes % 3.7, Eosinophils % 6.5 H, Basophils % 0.7, Absolute Granulocytes 5.7, Absolute Lymphocytes 2.1, Absolute Monocytes 0.3, Absolute Eosinophils 0.6, Absolute Basophils 0.1, PUBS MCHC 33.6, Urine Test NEGATIVE Microbiology 12/13 1931 BLOOD: Blood Culture - RES 12/12 1849 BLOOD: Blood Culture - RES CT orbits with IV contrast: 1. Preseptal soft tissue tissue swelling over the right orbit. 2. No orbital fracture. 3. Sinus disease. Assessment/Plan Assessment: This is a 46 year-old female with PMH of seasonal allergies on Claritin, asthma, lower extremity edema on furosemide, who presented to ED 2 days ago with chief complaint of right eye pain. Pain was associated
--- NOTE | 2016-12-14 08:29 | PN- Housestaff ---
LARRY JARRETT 12/14/16 0828: Subjective Follow-up For: preseptal cellulitis Subjective: Seen and examined patient. Continues to have mild right eye swelling and discomfort on medial abduction of right eye. Denies pain on eye movement, headache, discharge or vision changes. Review of Systems Constitutional: Denies: chills, diaphoresis, fever, malaise, weakness, unexplained weight loss. Cardiovascular: Denies: chest pain, edema, orthopena, palpitations, peripheral edema, syncope. Respiratory: Denies: cough, hemoptysis, orthopnea, short of breath, sputum production, stridor, wheezing. Objective Last 24 Hrs of Vital Signs/I&O Vital Signs Date Time Temp Pulse Resp B/P B/P Pulse O2 O2 Flow FiO2 Mean Ox Delivery Rate 12/14 0651 98.3 78 20 142/74 97 Room Air 12/13 2243 97.9 70 20 126/80 97 Room Air 12/13 1427 98.2 93 20 130/74 98 Intake & Output 12/14 1600 12/14 0800 12/14 0000 Intake Total 780 630 Output Total Balance 780 630 Intake, IV 300 150 Intake, Oral 480 480 Physical Exam General Appearance: Alert, Oriented X3, Cooperative, No Acute Distress Skin: mild right eye Cardiovascular: Regular Rate, Normal S1, Normal S2 Lungs: Clear to Auscultation, Normal Air Movement Current Medications: Current Medications Sig/Bruno Start time Last Medication Dose Route Stop Time Status Admin Acetaminophen 650 MG Q6P PRN 12/13 0230 DCD 12/13 PO 0458 Acetaminophen 1,000 MG Q6P PRN 12/13 0230 DCD IV Acyclovir 1 CHRISTIAN Q4 12/13 1800 DCD 12/14 TOP 1010 Albuterol Sulfate 2 PUF Q4-6 PRN PRN 12/13 0230 DCD INH Ampicillin Sodium/ 3,000 MG Q6 / 2359 DCD 12/14 Sulbactam Sodium IV 0536 Sodium Chloride 100 ML Furosemide 40 MG DAILY PRN 12/13 0500 DCD 05 PO 0338 Heparin Sodium 5,000 UNIT Q8 / 0600 DCD 12/14 (Porcine) SC 0535 Oxycodone/ 1 TAB Q6P PRN 12/13 0230 DCD Acetaminophen PO Patient Medication 1 ED .STK-MED ONE 12/13 1412 DC Teaching ED 12/13 1413 Potassium Chloride 10 MEQ DAILY PRN 12/13 0515 DCD 12/14 PO 0338 Assessment/Plan Assessment: 46-year-old female with past medical history significant for seasonal allergies, asthma, water retention in legs on lasix as required presented to [facility] emergency department with the chief complaint of right eye pain associated with redness and swelling for a couple of weeks. CT scan of orbits with IV contrast. Current admission for outpatient treatment failure of preseptal cellulitis. hospital day 2 afebrile, VSS stable, Problem list assessment and plan Preseptal cellulitis: will be discharged on augmentin for a total of 10days of abx. Advised her to f/ up with her pcp on Sunday or Sunday to look for complete resolution. HSV-1 lesions: continue topical acyclovir Alps for DVT prophylaxis Pain pathway Regular diet medically stable for dc to home today Problem List: 1. Periorbital cellulitis of right eye Pain Ratin Pain Location: na Pain Goal: Pain 4 or less Pain Plan: current regimen Tomorrow's Labs & Rationales: none required COLEMAN NAVA MD 12/14/16 1145: Attending MD Review Statement Attending Statement Attending MD Statement: examined this patient, discuss w/resident/PA/PILLOWCASE SEWER, agreed w/resident/PA/PILLOWCASE SEWER, reviewed EMR data (avail), discussed with nursing, discussed with case mgmt, amended to note Attending Assessment/Plan: Patient seen and examined. Sitting up comfortably in her bed and not in any acute distress. No events overnight reported by nursing staff. She has remained afebrile and hemodynamically stable. On examination of the right eye is no periorbital erythema. There is mild swelling of the upper eyelid. She is able to open the eyelids spontaneously. She has normal extraocular muscle movements. There is no pain with eye movement. There is no discharge. She is responding to current antibiotic therapy. At this point she may be safely discharged home and complete a ten-day course of antibiotic therapy with Augmentin. She has been advised to follow-up with her primary care provider as an outpatient next week prior to discontinuation of antibiotic therapy. She verbalizes understanding.
[2016-12-14 10:03] VITALS: BP 124/80
== END 2016-12-14 10:41 | DRG 383 ==
LOC: ERH 17:42 → 2NA 21:37 → ERHI 21:37 → ENRESERV 23:24 → 2NA 12-13 00:33 → ENPENDDIS 12-14 08:07 → 2NA 12-14 10:41
PROVIDERS: Internal Medicine Cardiovascular Disease; Physician Assistant; ADMIT Internal Medicine
DX: L03.213 Periorbital cellulitis (principal); J45.909 Unspecified asthma, uncomplicated; F17.210 Nicotine dependence, cigarettes, uncomplicated; R60.9 Edema, unspecified; E66.9 Obesity, unspecified; Z68.43 Body mass index [BMI] 50.0-59.9, adult; B00.1 Herpesviral vesicular dermatitis; F17.200 Nicotine dependence, unspecified, uncomplicated
CPT/HCPCS: 2NAP; ERO; 81025; 82436; 87040; J1644; J3370; J3490; J7040